=== PATIENT | male | born 1940 | race Two or more races ===

== ENCOUNTER 2024-10-26 21:09 | Emergency (ER) | payer SELFPAY ==
[2024-10-26 21:11] VITALS: BMI 24.7
[2024-10-26 21:49] VITALS: BP 153/89; PULSE 73; RESP 18; TEMP 37.1; O2SAT 97
--- NOTE | 2024-10-26 21:58 | EDNOTE_ITS ---
<Statement entered by Carmelina Freire MD - 11/02/24 17:49> As co-signing physician, I was present and available for consult prn. I concur with the plan and care as documented by the midlevel provider. ED Skin Abcess FB-RME/HPI General Chief complaint: Skin/Abscess/Foreign Body Stated complaint: RIGHT UPPER ARM REDNESS AND SWELLING Time Seen by Provider: 10/26/24 21:23 Source: patient Arrival date/time: 10/26/24 21:09 84-year-old male presents emergency department complaining of redness and edema to right upper medial arm after he removed a tick earlier today. Patient denies any fever, chills, nausea vomiting, headache, cough, shortness of breath, or any other associated symptom. Mode of arrival: ambulatory Limitations: no limitations Related Data Previous Rx's ?Medication ?Instructions ?Recorded doxycycline hyclate 100 mg capsule 100 mg PO BID 10 days #20 caps 10/26/24 doxycycline hyclate 100 mg capsule 100 mg PO BID 10 days #20 caps 10/26/24 Allergies Allergy/AdvReac Type Severity Reaction Status Date / Time No Known Allergies Allergy Verified 10/26/24 21:12 Review of Systems Review of Systems Systems Reviewed: All systems reviewed, normal except as documented Constitutional Constitutional: Reports system reviewed and no additional complaints, except as documented, Denies body ache(s), Denies chills and Denies fever(s) Eyes Eyes: Reports system reviewed and no additional complaints, except as documented and Denies change in vision ENT Ears, Nose, Mouth, and Throat: Reports system reviewed and no additional complaints, except as documented, Denies disequilibrium, Denies dizziness, Denies sore throat and Denies vertigo Cardiovascular Cardiovascular: Reports system reviewed and no additional complaints, except as documented, Denies chest pain and Denies dyspnea Respiratory Respiratory: Reports system reviewed and no additional complaints, except as documented, Denies chest congestion, Denies cough and Denies dyspnea Gastrointestinal Gastrointestinal: Reports system reviewed and no additional complaints, except as documented, Denies abdominal pain, Denies nausea and Denies vomiting Musculoskeletal Musculoskeletal: Reports system reviewed and no additional complaints, except as documented, Denies abnormal gait and Denies arthralgias Integumentary/Breasts Skin/Breast: Reports system reviewed and no additional complaints, except as documented, Reports erythema, Reports rash and Reports wounds Neurologic Neurologic: Reports system reviewed and no additional complaints, except as documented, Denies abnormal gait, Denies disequilibrium, Denies dizziness and Denies vertigo Past Medical History Social History SMOKING STATUS: Never smoker ED Exam General Limitations: Present no limitations General appearance: Present alert and in no apparent distress Head Head exam: Present atraumatic Eye Eye exam: Present normal appearance, PERRL and EOMI ENT ENT exam: Present normal exam, normal oropharynx and mucous membranes moist Neck Neck exam: Present normal inspection, full ROM and trachea midline Chest Chest inspection: Present normal inspection and symmetric chest wall rise Respiratory Respiratory exam: Present normal lung sounds bilaterally Cardiovascular Cardiovascular exam: Present regular rate, normal rhythm and normal heart sounds Abdominal Exam Abdominal exam: Present soft and normal bowel sounds Extremities Exam Extremities exam: Present normal inspection and full ROM Back Exam Back exam: Present normal inspection and full ROM Neurological Exam Neurological exam: Present alert, oriented X3 and CN II-XII intact Psychiatric Psychiatric exam: Present normal affect and normal mood Skin Skin exam: Present warm, dry and intact Expanded Skin Exam Type of lesion: Present bite/sting Distribution: Present RUE Description: Present tenderness, erythematous and swelling Body image: 2 1. Redness, erythema, and small area of induration warm to touch. Course Quality Measures none Orders Category Date Time Status cefTRIAXone [Rocephin] 1,000 mg Med 10/26/24 22:04 Discontinued Lidocaine 1% 20 ml [Xylocaine 1% 20 ML] 2.1 ml IM X1 Vital Signs Vital signs: Vital Signs Temperature 98.7 F 10/26/24 21:49 Pulse Rate 73 10/26/24 21:49 Respiratory Rate 18 10/26/24 21:49 Blood Pressure 153/89 H 10/26/24 21:49 Pulse Oximetry (%) 97 10/26/24 21:49 Oxygen Delivery Method Room Air 10/26/24 21:49 97% room air within normal limits Skin / Abscess / Foreign Body MDM Narrative MDM Narrative:: 84-year-old male presents emergency department complaining of redness and edema to right upper medial arm after he removed a tick earlier today. Patient denies any fever, chills, nausea vomiting, headache, cough, shortness of breath, or any other associated symptom. Patient appears nontoxic and is hemodynamically stable. Patient does not have any SIRS criteria for possible sepsis. Skin exam no obvious erythema migrans but may be early. No obvious part of still attached to skin on exam. Patient given IM Rocephin and discharged on doxycycline to cover Lyme disease. Patient instructed to have close follow-up on Saturday for reevaluation of cellulitis to right upper arm with primary care provider or emergency room. Instructed to return to emergency department for any worsening symptoms or as needed. Patient data External records reviewed:: [facility] previous records Clinical information provided by:: patient Social determinants that could affect healthcare access:: none Patient has the following chronic illnesses:: N/A How is presenting disease/condition affected by chronic disease/condition?: no chronic disease Evaluation data The following diagnostics were reviewed and interpreted by me:: other (specify) (None) Lab and/or radiology exams considered but not ordered:: None Interpretation Summary: None Medications / Prescriptions Medications or Prescriptions considered but not ordered:: Ordered Medication administrations:: Medication Administration History Discontinued Medications Ceftriaxone Sodium 1,000 mg/ (Lidocaine HCl 2.1 ml) 0 mg IM X1 ONE Stop: 10/26/24 22:05 Last Admin: 10/26/24 22:14 Dose: 1,000 mg Documented By: Given Consultations Consultation(s) initiated? (list below): No Diagnosis Skin/Abscess Differential Diagnosis: abscess of skin or subcutaneous tissue, dermatophytosis, urticaria, cellulitis, insect bites, contact dermatitis and other (Erythema migrans) Most likely diagnosis given after review of the tests above:: Tick bite Cellulitis Admission Indicated Admission indicated?: not indicated Admission Request Was there a request for admission?: No Disposition Plan Disposition Plan: Discharge Discharge Attestation Discharge Attestation: The patient and all family members were given an opportunity to ask questions and understood the discharge instructions. Discharge instructions specifically effects, indications for sooner follow up or return to the emergency department, and the expected course of current diagnosis. Patient condition: Stable Discharge Plan Plan Patient Disposition: HOME (Self Care) Disposition Comment: Stable Prescriptions/Referrals Prescriptions/Med Rec: New doxycycline hyclate 100 mg capsule 100 mg PO BID 10 Days Qty: 20 0RF doxycycline hyclate 100 mg capsule 100 mg PO BID 10 Days Qty: 20 0RF Problem List Clinical Impression: Tick bite, Cellulitis Patient/Caregiver Discharge Instructions Discharge Activity: activity as tolerated Education Materials: ED Bite Tick Abx Tx Additional Instructions: Take medication as prescribed. Close follow-up with primary care provider in 24 to 40 hours. Return immediately to the emergency department for any worsening symptoms or as needed. Print Language: Citizen Of [place] Stand Alone Forms: Gwendolyn Award Info., Patient Portal Info Letter PA/BARN AND PROPERTY MANAGER Supervising Physician PA/[employer]ARN AND PROPERTY MANAGER Supervising Physician: Dr. Freire
[2024-10-26] MEDS: cefTRIAXone 1,000 MG, LIDOCAINE 1% 20 ML 2.1 ML IM (22:14)
== END 2024-10-26 22:20 | disposition home or self-care (01) ==
PROVIDERS: Emergency Provider Emergency Medicine
DX: S40.861A Insect bite (nonvenomous) of right upper arm, initial encounter (principal); L03.113 Cellulitis of right upper limb; W57.XXXA Bitten or stung by nonvenomous insect and other nonvenomous arthropods, initial encounter
CPT/HCPCS: 96372; 99283; J0696; J3490